=== PATIENT | female | born 1945 | race Caucasian/White ===

== ENCOUNTER 2022-06-09 09:18 | Emergency (ER) | payer OTHER ==
[2022-06-09 09:33] VITALS: BP 158/44; PULSE 72; RESP 18; TEMP 97.6; BMI 26.7
[2022-06-09] MEDS ORDERED: LIDOCAINE 5% TOPICAL PATCH TP ONE (10:12)
[2022-06-09] MEDS ORDERED: KETOROLAC TROMETHAMINE 60 MG/2 ML VIAL IM ONE (10:12)
[2022-06-09] MEDS ORDERED: LIDOCAINE 5% TOPICAL PATCH ONE (10:29)
[2022-06-09] MEDS ORDERED: KETOROLAC TROMETHAMINE 15 MG/ML VIAL ONE (10:29)
[2022-06-09] MEDS ORDERED: LIDOCAINE PATCH REMOVAL MC SCH (22:00)
== END 2022-06-09 12:19 | disposition home or self-care (01) ==
LOC: JER 09:18
PROC: 3E0233Z Introduction of Anti-inflammatory into Muscle, Percutaneous Approach (ICD-10-PCS; principal; 2022-06-09)
DX: M54.2 Cervicalgia (principal); G56.01 Carpal tunnel syndrome, right upper limb
CPT/HCPCS: 72040-TC; 73110-TC-RT-FY; 73130-TC-RT-FY; 96372; 99284-25

== ENCOUNTER 2023-09-30 18:53 | Inpatient (IN) | payer OTHER ==
[2023-09-30 19:53] LABS: EPI CELLS 4 /uL (0-25.1); HYALINE CASTS 1 /uL (0-3.1); PH,URINE 7.5 (5.0-8.0); URINE APPEARANCE CLOUDY; URINE BACTERIA >9,000 /uL (0-1359); URINE BILIRUBIN NEGATIVE (NEGATIVE); URINE COLOR YELLOW; URINE GLUCOSE (UA) 2+ (NEGATIVE); URINE KETONE NEGATIVE (NEGATIVE); URINE LEUK ESTERASE 3+ (NEGATIVE); URINE NITRITE NEGATIVE (NEGATIVE); URINE PROTEIN TRACE (NEGATIVE); URINE RBC 25 /uL (0-23.9); URINE UROBILINOGEN 0.2 mg/dL (0.2-1.0); URINE WBC 169 /uL (0-25.8)
[2023-09-30] MEDS ORDERED: CEFTRIAXONE 1,000 MG in DEXTROSE 5%-WATER - 50 ML IVPB ONE (20:04)
[2023-09-30 20:22] LABS: BASO % 0.5 % (0-2.0); EOS % 0.9 % (0-4.5); HEMATOCRIT 34.3 % (32.4-45.2); LYMPH % 13.2 % (8-40); MCH 27.9 pg (25.7-33.7); MEAN CELL VOLUME 87.1 fl (80-96); MEAN PLT VOLUME 9.5 fl (7.5-11.1); MONO % 5.9 % (3.8-10.2); NEUT % 79.5 % (42.8-82.8); PLATELET COUNT 322 10^3/uL (134-434); RBC 3.94 M/mm3 (3.60-5.2); RDW 14.8 % (11.6-15.6); WHITE BLOOD COUNT 12.1 K/mm3 (4.0-10.0)
[2023-09-30 20:33] LABS: PROTHROMBIN TIME (PATIENT) 11.6 SEC (9.7-13.0)
[2023-09-30 20:36] LABS: ACTIVATED PTT 31.9 SECONDS (25.2-36.5)
[2023-09-30] MEDS ORDERED: CEFTRIAXONE 1 GM/50 ML BAG ONE (20:37)
[2023-09-30 21:05] LABS: POTASSIUM 5.9 mmol/L (3.5-5.1)
[2023-09-30 21:07] LABS: CALCIUM 10.2 mg/dL (8.5-10.1)
[2023-09-30 21:08] LABS: ALBUMIN 3.7 g/dl (3.4-5.0); BLOOD UREA NITROGEN 36.6 mg/dL (7-18)
[2023-09-30 21:11] LABS: CREATININE 2.1 mg/dL (0.55-1.3)
[2023-09-30 21:12] LABS: BILIRUBIN,TOTAL 0.4 mg/dL (0.2-1); TOT PROT 7.5 g/dl (6.4-8.2)
[2023-09-30] MEDS ORDERED: ACETAMINOPHEN 1000 MG/100 ML BAG IVPB ONE (21:36)
[2023-09-30] MEDS ORDERED: ACETAMINOPHEN INJECTION 100 ML IVPB ONE (21:37)
[2023-10-01] MEDS ORDERED: SODIUM ZIRCONIUM CYCLOSILICATE (LOKELMA) 5 GM PACKET PO ONE (00:33)
[2023-10-01] MEDS ORDERED: SODIUM ZIRCONIUM CYCLOSILICATE (LOKELMA) 10 GM PACKET ONE (01:26)
[2023-10-01] MEDS: SODIUM CHLORIDE 1,000 ML IV SCH ×2 (02:56→18:26)
[2023-10-01] MEDS: INSULIN ASPART SLIDING SCALE (NOVOLOG) 1 VIAL SQ SCH ×4 (03:04→17:38)
[2023-10-01 04:17] VITALS: BMI 25.0
[2023-10-01] MEDS: HEPARIN NA (PORCINE) 5,000 UNITS/ML 1ML VIAL SQ SCH ×2 (06:19→15:10)
[2023-10-01] MEDS ORDERED: ACETAMINOPHEN 1000 MG/100 ML BAG IVPB PRN (09:42)
[2023-10-01 09:57] LABS: BASO % 0.5 % (0-2.0); EOS % 0.3 % (0-4.5); HEMATOCRIT 31.9 % (32.4-45.2); HEMOGLOBIN 10.5 GM/dL (10.7-15.3); LYMPH % 7.3 % (8-40); MCH 28.5 pg (25.7-33.7); MCHC 32.9 g/dl (32.0-36.0); MEAN CELL VOLUME 86.6 fl (80-96); MEAN PLT VOLUME 9.9 fl (7.5-11.1); MONO % 5.9 % (3.8-10.2); PLATELET COUNT 292 10^3/uL (134-434); POTASSIUM 4.6 mmol/L (3.5-5.1); RBC 3.68 M/mm3 (3.60-5.2); RDW 14.7 % (11.6-15.6); WHITE BLOOD COUNT 13.4 K/mm3 (4.0-10.0)
[2023-10-01] MEDS ORDERED: WATER IVPB SCH (10:00)
[2023-10-01] MEDS ORDERED: SULFAMETHOXAZOLE 80 MG/TRIMETHOPRIM 16 MG/ML VIAL IVPB SCH ×2 (10:00)
[2023-10-01] MEDS ORDERED: TRIMETHOPRIM IVPB SCH (10:00)
[2023-10-01] MEDS ORDERED: DEXTROSE 5% IVPB SCH (10:00)
[2023-10-01] MEDS ORDERED: SULFAMETHOXAZOLE IVPB SCH (10:00)
[2023-10-01 10:05] LABS: BLOOD UREA NITROGEN 34.4 mg/dL (7-18); CALCIUM 9.7 mg/dL (8.5-10.1); MAGNESIUM 1.6 mg/dL (1.8-2.4)
[2023-10-01 10:08] LABS: BILIRUBIN,TOTAL 0.6 mg/dL (0.2-1); CREATININE 1.9 mg/dL (0.55-1.3); PHOSPHOROUS 3.9 mg/dL (2.5-4.9)
[2023-10-01 10:10] LABS: TOT PROT 6.6 g/dl (6.4-8.2)
[2023-10-01] MEDS: TAMSULOSIN HCL 0.4 MG CAP PO SCH (10:34)
[2023-10-01] MEDS: metoPROLOL SUCCINATE 25 MG TAB.SR.24H (FP) PO SCH (10:34)
[2023-10-01] MEDS: CEFTRIAXONE 1 GM in DEXTROSE 5%-WATER - 50 ML IVPB SCH (10:35)
[2023-10-02] MEDS: INSULIN ASPART SLIDING SCALE (NOVOLOG) 1 VIAL SQ SCH ×3 (06:44→18:00)
[2023-10-02 09:01] LABS: BASO % 0.7 % (0-2.0); EOS % 1.2 % (0-4.5); HEMOGLOBIN 9.5 GM/dL (10.7-15.3); MCH 28.7 pg (25.7-33.7); MCHC 32.8 g/dl (32.0-36.0); MEAN CELL VOLUME 87.6 fl (80-96); MONO % 8.9 % (3.8-10.2); NEUT % 70.2 % (42.8-82.8); PLATELET COUNT 257 10^3/uL (134-434); RBC 3.31 M/mm3 (3.60-5.2); RDW 14.8 % (11.6-15.6); WHITE BLOOD COUNT 8.4 K/mm3 (4.0-10.0)
[2023-10-02] MEDS: CEFTRIAXONE 1 GM in DEXTROSE 5%-WATER - 50 ML IVPB SCH (09:34)
[2023-10-02] MEDS: SODIUM CHLORIDE 1,000 ML IV SCH (09:36)
[2023-10-02] MEDS: TAMSULOSIN HCL 0.4 MG CAP PO SCH (09:36)
[2023-10-02] MEDS: metoPROLOL SUCCINATE 25 MG TAB.SR.24H (FP) PO SCH (09:37)
[2023-10-02 09:46] LABS: ALBUMIN 2.9 g/dl (3.4-5.0); CALCIUM 9.1 mg/dL (8.5-10.1)
[2023-10-02 09:47] LABS: BLOOD UREA NITROGEN 26.1 mg/dL (7-18)
[2023-10-02 09:49] LABS: BILIRUBIN,TOTAL 0.5 mg/dL (0.2-1); TOT PROT 6.2 g/dl (6.4-8.2)
[2023-10-02 09:50] LABS: CREATININE 1.4 mg/dL (0.55-1.3)
[2023-10-02] MEDS ORDERED: SODIUM CHLORIDE 500 ML IV SCH (14:45)
[2023-10-02] MEDS: FENTANYL CITRATE/PF 50 MCG/ML VIAL IVPUSH SCH ×2 (14:55→15:18)
[2023-10-02] MEDS: MIDAZOLAM HCL 2 MG/2 ML SINGLE DOSE VIAL IVPUSH SCH ×2 (14:55→15:17)
[2023-10-02] MEDS ORDERED: cefTRIAXone SODIUM 1 GM VIAL IVPB ONE (14:56)
[2023-10-03] MEDS ORDERED: ACETAMINOPHEN 1000 MG/100 ML BAG IVPB ONE (02:13)
[2023-10-03] MEDS: SODIUM CHLORIDE 1,000 ML IV SCH (02:38)
[2023-10-03] MEDS: INSULIN ASPART SLIDING SCALE (NOVOLOG) 1 VIAL SQ SCH ×3 (08:04→17:12)
[2023-10-03] MEDS: TAMSULOSIN HCL 0.4 MG CAP PO SCH (09:06)
[2023-10-03] MEDS: CEFTRIAXONE 1 GM in DEXTROSE 5%-WATER - 50 ML IVPB SCH (09:06)
[2023-10-03] MEDS: metoPROLOL SUCCINATE 25 MG TAB.SR.24H (FP) PO SCH (09:06)
[2023-10-03] MEDS ORDERED: INSULIN (NOVOLOG) ASPART 100 UNITS/ML 10ML VIAL ONE ×2 (11:15→17:11)
[2023-10-03] MEDS ORDERED: PANTOPRAZOLE 40 MG TABLET PO ONE (14:04)
[2023-10-03 21:58] VITALS: RESP 20
[2023-10-04 06:46] VITALS: BP 114/72; PULSE 66; TEMP 97
[2023-10-04] MEDS: INSULIN ASPART SLIDING SCALE (NOVOLOG) 1 VIAL SQ SCH ×2 (07:02→11:17)
[2023-10-04] MEDS: TAMSULOSIN HCL 0.4 MG CAP PO SCH (09:18)
[2023-10-04] MEDS: metoPROLOL SUCCINATE 25 MG TAB.SR.24H (FP) PO SCH (09:18)
[2023-10-04] MEDS: CEFTRIAXONE 1 GM in DEXTROSE 5%-WATER - 50 ML IVPB SCH (09:18)
[2023-10-04 09:49] LABS: BASO % 0.8 % (0-2.0); EOS % 2.7 % (0-4.5); HEMATOCRIT 30.3 % (32.4-45.2); MCH 28.5 pg (25.7-33.7); MEAN CELL VOLUME 86.3 fl (80-96); MEAN PLT VOLUME 9.8 fl (7.5-11.1); MONO % 11.2 % (3.8-10.2); NEUT % 56.3 % (42.8-82.8); PLATELET COUNT 296 10^3/uL (134-434); RBC 3.52 M/mm3 (3.60-5.2); RDW 14.6 % (11.6-15.6); WHITE BLOOD COUNT 5.5 K/mm3 (4.0-10.0)
[2023-10-04 09:52] LABS: POTASSIUM 3.8 mmol/L (3.5-5.1)
[2023-10-04 10:00] LABS: CALCIUM 9.6 mg/dL (8.5-10.1)
[2023-10-04] MEDS ORDERED: PANTOPRAZOLE 40 MG TABLET PO SCH (10:00)
[2023-10-04 10:01] LABS: ALBUMIN 2.9 g/dl (3.4-5.0); BLOOD UREA NITROGEN 19.8 mg/dL (7-18)
[2023-10-04 10:04] LABS: CREATININE 1.2 mg/dL (0.55-1.3)
[2023-10-04 10:06] LABS: BILIRUBIN,TOTAL 0.4 mg/dL (0.2-1); TOT PROT 6.4 g/dl (6.4-8.2)
== END 2023-10-04 11:57 | disposition home or self-care (01) | DRG 690 ==
LOC: JER 18:53 → JERBED 22:49 → J8W 10-01 03:43 → OBSVTOIN 10-01 12:31
PROVIDERS: ADMIT Internal Medicine; ATTEND Nurse Practitioner Family
PROC: 0T9130Z Drainage of Left Kidney with Drainage Device, Percutaneous Approach (ICD-10-PCS; principal; 2023-10-02)
DX: N13.6 Pyonephrosis (principal); N17.9 Acute kidney failure, unspecified; I10 Essential (primary) hypertension; E11.9 Type 2 diabetes mellitus without complications; E87.5 Hyperkalemia; G56.00 Carpal tunnel syndrome, unspecified upper limb; B96.20 Unspecified Escherichia coli [E. coli] as the cause of diseases classified elsewhere; B95.2 Enterococcus as the cause of diseases classified elsewhere; Z85.51 Personal history of malignant neoplasm of bladder
CPT/HCPCS: 36415; 50432; 71046-TC-FY; 74176-TC; 80048; 80053; 81003; 82550; 82962; 83735; 84100; 84484; 85025; 85610; 85730; 87086; 87186; 93005; 93010; 99285-25; G0378; J0131; J1644

== ENCOUNTER 2023-10-30 04:37 | Day surgery (SDC) | payer OTHER ==
[2023-10-25 11:11] VITALS: BMI 24.2
[2023-10-30] MEDS ORDERED: ceFAZolin SODIUM 1 GM VIAL ONE (11:09)
[2023-10-30] MEDS ORDERED: PROPOFOL 20 ML ONE (11:09)
[2023-10-30] MEDS ORDERED: KETOROLAC TROMETHAMINE 30 MG/1 ML VIAL ONE (11:09)
[2023-10-30] MEDS ORDERED: LIDOCAINE HCL/PF 2% SDV 5ML VIAL ONE (11:09)
[2023-10-30] MEDS ORDERED: MIDAZOLAM HCL 2 MG/2 ML SINGLE DOSE VIAL ONE (11:09)
[2023-10-30] MEDS ORDERED: ONDANSETRON 4 MG/2 ML VIAL ONE (11:09)
[2023-10-30] MEDS ORDERED: DEXAMETHASONE SOD PHOSPHATE 4 MG/1 ML VIAL ONE (11:09)
[2023-10-30] MEDS ORDERED: ONDANSETRON 4 MG/2 ML VIAL IVPUSH PRN (11:12)
[2023-10-30] MEDS ORDERED: PROMETHAZINE HCL 25 MG/1 ML VIAL IVPB PRN (11:12)
[2023-10-30] MEDS ORDERED: oxyCODONE HCL 5 MG TABLET PO PRN (11:12)
[2023-10-30] MEDS ORDERED: ACETAMINOPHEN 1000 MG/100 ML BAG IVPB PRN (11:13)
[2023-10-30] MEDS: IOHEXOL 300 MG/ML INFUS..BTL IV ONE (11:15)
[2023-10-30] MEDS ORDERED: SEVOFLURANE 250 ML BTL ONE (11:19)
[2023-10-30] MEDS: ceFAZolin SODIUM 1 GM VIAL IVPB ONE ×2 (11:28)
[2023-10-30] MEDS: LACTATED RINGERS SOLUTION 1,000 ML IV SCH (12:22)
[2023-10-30 12:56] VITALS: RESP 20
[2023-10-30 14:13] VITALS: BP 115/57; PULSE 68; TEMP 97.5
== END 2023-10-30 14:16 | disposition home or self-care (01) ==
LOC: JASU-SURG 04:37
PROVIDERS: ATTEND Urology
PROC: 0T778DZ Dilation of Left Ureter with Intraluminal Device, Via Natural or Artificial Opening Endoscopic (ICD-10-PCS; principal; 2023-10-30 11:30)
DX: N13.2 Hydronephrosis with renal and ureteral calculous obstruction (principal)
CPT/HCPCS: 76000-TC-FY; 82962; 94760; C1747; C1758; C2617